=== PATIENT | female | born 2000 | race Caucasian/White ===

== ENCOUNTER 2023-08-09 03:11 | Emergency (ER) | payer MEDICAID, SELFPAY ==
[2023-08-09 03:21] VITALS: BP 123/72; PULSE 87; RESP 18; TEMP 36.7; O2SAT 97; BMI 30.7
--- NOTE | 2023-08-09 03:45 | ED_ITS ---
HPI - General Adult General Chief complaint: Abdominal Pain Stated complaint: Abdominal Pain Time Seen by Provider: 08/09/23 03:25 Source: patient Mode of arrival: ambulatory Limitations: no limitations History of Present Illness HPI narrative: 22-year-old female presents the emergency department with epigastric area discomfort for the past hour. Reports that she is felt intermittently mildly nauseated for the last couple of weeks. It has not limited her ability to eat or drink. She said that she had a salad for dinner at 8:29 p.m. and was watching movies with a friend. No alcohol or smoking. She had some spicy [place] at about 2:00 a.m. and started to have a feeling of epigastric burning. Reports that the pain was 9/10. She went to the bathroom where she vomited x1. She says that this did not improve her pain. She did not try taking an antacid medicine, Maalox, Tylenol or any other interventions prior to coming to the ED. Bowel movements have been normal. No hematemesis, no bloody stools, no fever, no trauma or injury. On specific questioning, she does report some reflux type symptoms. She also takes naltrexone, bupropion and spironolactone. This certainly could be contributing to her propensity for gastric reflux. She denies any right upper quadrant pain. No shortness of breath or chest discomfort. No prior history of stomach surgeries. Past medical history notable for PCOS per her report. Home meds as listed, confirmed accurate. Socially she is a nonsmoker, denies any recent alcohol. ROS is notable for the GI symptoms as above only, otherwise denies times 12 systems. Related Data Home Medications Medication Instructions Recorded Confirmed bupropion HCl 150 mg 24 hr tablet, 150 mg PO QAM 08/09/23 08/09/23 extended release naltrexone 50 mg tablet 12.5 mg PO DAILY 08/09/23 08/09/23 spironolactone 100 mg tablet 100 mg PO DAILY 08/09/23 08/09/23 Allergies Allergy/AdvReac Type Severity Reaction Status Date / Time shrimp Allergy Severe Verified 08/09/23 03:24 [facility] Social History Smoking Status: Never smoker Do you use any of these nicotine containing products: None Second hand tobacco smoke exposure: No How often do you have a drink containing alcohol: monthly or less How many standard drinks containing alcohol do you have on a typical day: 1 or 2 How often do you have six or more drinks on one occasion: Never AUDIT-C Alcohol total score: 1 Non-prescribed substance use: denies use service: No Exam Const: Vital Signs, click to edit/add: Vital Signs - 24 hr 08/09/23 03:21 08/09/23 04:47 Temperature 98.0 F 98.0 F Pulse Rate [Pulse Oximeter] 87 84 Respiratory Rate 18 16 Blood Pressure [Ri ght Upper Arm] 123/72 123/72 Pulse Oximetry 97 98 Oxygen Delivery Me thod Room Air Room Air Documenting provider has reviewed patient's vital signs: yes Common normals: no apparent distress General appearance: cooperative, comfortable and well kempt HENMT: Common normals: normocephalic Head and scalp: normocephalic Face and sinus: normal facial exam Mouth: oral and palatal mucosa normal Throat: posterior oropharynx normal Eye: Common normals: conjunctivae normal General eye: normal appearance of both eyes Conjunctiva: conjunctiva(e) normal Neck & C-Spine: Common normals: full ROM and no lymphadenopathy Resp: Common normals: normal respiratory effort, no use of accessory muscles and clear to auscultation bilaterally Effort & inspection: able to speak in complete sentences Auscultation: clear to auscultation bilaterally Cardio: Common normals: regular rate, regular rhythm, S1 normal heart sound and S2 normal heart sound Rate: regular rate Rhythm: regular rhythm Heart sounds: S1 normal and S2 normal GI: Common normals: Normal to inspection, nondistended, normoactive bowel sounds present, soft to palpation, no hepatosplenomegaly and no masses Palpation: soft and no hepatosplenomegaly Other: Mildly tender to epigastric region only, no tenderness to right upper quadrant or other areas of the abdomen. Certainly no rebound tenderness no guarding Extremity: Common normals: normal to inspection Neuro: Speech: speech normal Motor exam: no tremor noted and no movement abnormalities noted Psych: Appearance: well kempt Attitude: engaged Activity/motor behavior: appropriate eye contact Insight: insight good Judgement: judgment good Skin: Common normals: no rashes or lesions noted General skin exam: no rashes or lesions noted Course Course ED Course: Mild epigastric discomfort with no features of guarding, hematemesis, bloody stools or other worrisome etiology. Recommend a trial of symptomatic care. Will give Zofran, Tylenol, omeprazole and Maalox and re-evaluate. If no improvement, consider additional workup to look for gallbladder disease, pancreatitis, colitis and or other considerations. Differential diagnosis also including more likely GERD and/or gastritis. Reevaluation(s) Time of Reevaluation #1: 05:07 Reevaluation #1: Patient reporting marked improvement in her symptoms. Counseled patient that this likely would not have helped had she had a more dangerous etiology than gastritis or GERD. There are no red flags for any major underlying illness. Recommended a 10 day course of omeprazole, dietary restrictions discussed. Follow-up with primary care if not improving as expected and or recurrent or refractory symptoms. Alarm symptoms reviewed that would warrant ED presentation. She verbalizes understanding and agreement Vital Signs Vital signs: Initial Vital Signs Temperature 98.0 F 08/09/23 03:21 Temperature Source Temporal Artery Scan 08/09/23 03:21 Pulse Rate 87 08/09/23 03:21 Pulse Rhythm Regular 08/09/23 03:21 Respiratory Rate 18 08/09/23 03:21 Blood Pressure 123/72 08/09/23 03:21 Blood Pressure Mean 89 08/09/23 03:21 Blood Pressure Position Sitting 08/09/23 03:21 Pulse Oximetry 97 08/09/23 03:21 Oxygen Delivery Method Room Air 08/09/23 03:21 Vital Signs Temperature 98.0 F 08/09/23 03:21 Pulse Rate 87 08/09/23 03:21 Respiratory Rate 18 08/09/23 03:21 Blood Pressure 123/72 08/09/23 03:21 Pulse Oximetry 97 08/09/23 03:21 Oxygen Delivery Method Room Air 08/09/23 03:21 Temperature 98.0 F 08/09/23 04:47 Pulse Rate 84 08/09/23 04:47 Respiratory Rate 16 08/09/23 04:47 Blood Pressure 123/72 08/09/23 04:47 Pulse Oximetry 98 08/09/23 04:47 Oxygen Delivery Method Room Air 08/09/23 04:47 Medications Administered Medications: Discontinued Medications Generic Name Dose Route Start Last Admin Trade Name Freq PRN Reason Stop Dose Admin Acetaminophen 1,000 mg 08/09/23 03:45 08/09/23 03:56 Acetaminophen 500 Mg Tablet PO 08/09/23 03:46 1,000 mg ONCE ONE Administration Lidocaine/Aluminum/Magnesium/Simeth 15 ml 08/09/23 03:45 08/09/23 03:56 Mag Hydrox/Aluminum Hyd/Simeth 30 Ml Oral.Susp PO 08/09/23 03:46 15 ml ONCE ONE Administration Omeprazole 20 mg 08/09/23 03:45 08/09/23 03:56 Omeprazole [address] PO 08/09/23 03:46 20 mg ONCE ONE Administration Ondansetron HCl 4 mg 08/09/23 03:45 08/09/23 03:56 Ondansetron Odt 4 Mg Tab PO 08/09/23 03:46 4 mg ONCE ONE Administration Discharge Plan Discharge Clinical Impression: Gastroesophageal reflux disease Patient Disposition: Home w/ Parent or Adult Condition: Improved Instructions: Diet for Stomach Ulcers and Gastritis (ED), GERD (Gastroesophageal Reflux Disease) (DC) Additional Instructions: As we discussed, your symptoms seem to be from stomach acid irritation. Female gender and some of the medications you take may be making this worse. Thankfully, it is not especially dangerous. We you were given a stomach acid medicine here in the ED that was helpful. I recommend that you purchase [id number] omeprazole 20 mg tablets. Take 1 tablet daily before your evening meal for at least the next 10 days. This should improve your symptoms and prevent worsening again. If you continue to have symptoms after 2 weeks on the medication, I would recommend that you follow-up with her primary care provider to further discuss more testing. We would then typically test for a bacterial infection called H.pylori, certain stomach disorders and sometimes we recommend an endoscopy. But for most people, the omeprazole is extremely helpful and they do not need further testing or workup. Activity Level: No Restrictions Discharge Diet: Regular Prescriptions: No Action naltrexone 50 mg tablet 12.5 mg PO DAILY spironolactone 100 mg tablet 100 mg PO DAILY bupropion HCl 150 mg tablet extended release 24 hr 150 mg PO QAM Follow Up/Referrals: Provider,Not a Local [Primary Care Provider] - Stand Alone Forms: [employer] Info Instructions
[2023-08-09] MEDS: ONDANSETRON ODT 4 MG TAB PO (03:56)
[2023-08-09] MEDS: MAG HYDROX/ALUMINUM HYD/SIMETH 30 ML ORAL.SUSP 15 ML PO (03:56)
[2023-08-09] MEDS: OMEPRAZOLE 20 MG CAPSULE DR PO (03:56)
[2023-08-09] MEDS: ACETAMINOPHEN 500 MG TABLET 1000 MG PO (03:56)
[2023-08-09 04:47] VITALS: BP 123/72; PULSE 84; RESP 16; TEMP 36.7; O2SAT 98
--- NOTE | 2023-08-09 04:48 | PC.NURSE ---
Pt. states she is feeling better, pain down to a 2/10. Denies N/V.
== END 2023-08-09 05:18 | disposition home or self-care (01) ==
PROVIDERS: Emergency Provider Family Medicine
DX: K21.9 Gastro-esophageal reflux disease without esophagitis (principal)
CPT/HCPCS: 99282; 99283; A9270

== ENCOUNTER 2024-05-28 17:34 | Emergency (ER) | payer OTHER, SELFPAY ==
[2024-05-28 17:39] VITALS: BP 113/72; PULSE 71; RESP 20; TEMP 36.4; O2SAT 98; BMI 29.1
--- NOTE | 2024-05-28 17:48 | ED_ITS ---
HPI - General Time Seen by Provider: 17:48 Date Seen: 05/28/24 Chief complaint: OB/Uterine Contractions Stated complaint: 3 months preg, possible miscarriage Time Seen by Provider: 05/28/24 17:35 Source: patient and RN notes reviewed Mode of arrival: ambulatory Limitations: no limitations History of Present Illness HPI Narrative: This 23-year-old female is coming into the ER with concern of a miscarriage. She started with some spotting this morning, had worsening bleeding and cramping, past which she believes was a gestational sac with the baby in it just about 20 minutes prior to arrival. In [place] here she field up a maxi pad. She states she had an ultrasound in [place] where she lives either May 03 or and they saw subchorionic hemorrhage in she had a cyst on her right ovary. This is her 1st . She had her last menstrual. The week of February 27. She did have some nausea vomiting earlier today, no fevers. Denies any other symptoms. She is not feeling symptomatic from any excessive blood loss. Related Data : 1 Home Medications ?Medication ?Instructions ?Recorded ?Confirmed bupropion HCl 150 mg 24 hr tablet, 150 mg PO QAM 08/09/23 08/09/23 extended release naltrexone 50 mg tablet 12.5 mg PO DAILY 08/09/23 08/09/23 spironolactone 100 mg tablet 100 mg PO DAILY 08/09/23 08/09/23 Allergies Allergy/AdvReac Type Severity Reaction Status Date / Time shrimp Allergy Severe Verified 08/09/23 03:24 Review of Systems Status of ROS: Reports: 6 or more systems reviewed and unremarkable except as noted in History and below PFSH [facility] Social History Smoking Status: Never smoker Do you use any of these nicotine containing products: None Second hand tobacco smoke exposure: No How often do you have a drink containing alcohol: monthly or less How many standard drinks containing alcohol do you have on a typical day: 1 or 2 How often do you have six or more drinks on one occasion: Never AUDIT-C Alcohol total score: 1 Non-prescribed substance use: denies use service: No Exam Const: Vital Signs, click to edit/add: Vital Signs - 24 hr 05/28/24 17:39 10/27/24 20:16 Temperature 97.6 F 98.3 F Pulse Rate [Pulse Oximeter] 71 78 Respiratory Rate 20 16 Blood Pressure [Ri ght Upper Arm] 113/72 122/64 Pulse Oximetry 98 98 Oxygen Delivery Me thod Room Air Room Air This 23-year-old female is alert, interactive, no apparent distress. Sclera clear. Lungs are clear, good air entry, no wheezing or crackles. CV regular rate and rhythm, no murmur, normal S1-S2, no S3-S4. Abdomen is soft, nontender, nondistended, do not feel any organomegaly. Her current pad has about a 2 cm area of some blood, she is wearing a thinner pad, not truly a maxi pad. No significant active bleeding noted at this time. Bimanual exam and speculum exam deferred at this point. Documenting provider has reviewed patient's vital signs: yes Course Course ED Course: Will obtain ultrasound for imaging. Need to know her blood type, get baseline labs with a hemoglobin. She will be monitored here for ongoing bleeding. We will see if she needs any intervention or if she can be managed outpatient. Reevaluation(s) Time of Reevaluation #1: 21:04 Reevaluation #1: Have reviewed with patient that this indeed peers to be miscarriage which certainly sound like it from the products of conception she believes she saw on the toilet. She does note she got up once call the bathroom did have another gush of blood. Otherwise has not had change her pad. She has cramping. She is requesting ibuprofen will get her some. Her baseline hemoglobin is good, will recheck 1 now. Her vitals are stable, does not seem to be actively hemorrhaging. Time of Reevaluation #2: 21:34 Reevaluation #2: Hemoglobin is 12.2, same as on admission. I think patient can follow symptoms clinically outpatient. She is aware that she needs follow-up with Ob when she gets back to [place]. If bleeding is a concern or more symptomatic or significant while still here, return to the ED. She is O positive for blood type. Vital Signs Vital signs: Initial Vital Signs Temperature 97.6 F 05/28/24 17:39 Temperature Source Temporal Artery Scan 05/28/24 17:39 Pulse Rate 71 05/28/24 17:39 Pulse Rhythm Regular 05/28/24 17:39 Respiratory Rate 20 05/28/24 17:39 Blood Pressure 113/72 05/28/24 17:39 Blood Pressure Mean 85 05/28/24 17:39 Blood Pressure Position Sitting 05/28/24 17:39 Pulse Oximetry 98 05/28/24 17:39 Oxygen Delivery Method Room Air 05/28/24 17:39 Vital Signs Temperature 97.6 F 05/28/24 17:39 Pulse Rate 71 05/28/24 17:39 Respiratory Rate 20 05/28/24 17:39 Blood Pressure 113/72 05/28/24 17:39 Pulse Oximetry 98 05/28/24 17:39 Oxygen Delivery Method Room Air 05/28/24 17:39 Temperature 98.3 F 05/28/24 20:16 Pulse Rate 78 05/28/24 20:16 Respiratory Rate 16 05/28/24 20:16 Blood Pressure 122/64 05/28/24 20:16 Pulse Oximetry 98 05/28/24 20:16 Oxygen Delivery Method Room Air 05/28/24 20:16 Medications Administered Medications: Discontinued Medications Generic Name Dose Route Start Last Admin Trade Name Gracie PRN Reason Stop Dose Admin Ibuprofen 400 mg 05/28/24 21:05 05/28/24 21:09 Ibuprofen 200 Mg Tablet PO 05/28/24 21:06 400 mg ONCE ONE Administration MDM - OB/Uterine Contractions Lab Data Attestation: I reviewed the patient's lab results. Labs: Lab Results 05/28/24 05/28/24 Range/Units 18:05 21:16 WBC 11.05 H (4.50-11.00) K/uL RBC 4.16 (4.00-5.20) m/uL Hgb 12.2 12.2 (12.0-16.0) gm/dL Hct 35.4 (33.0-51.0) % MCV 85 (80-100) fL MCH 29 (26-34) pg MCHC 35 (32-36) gm/dL RDW Coeff of Evgeny 12.7 (11.5-15.5) % Plt Count 242 (140-440) K/uL Neut % (Auto) 85.3 H (42.0-72.0) % Lymph % (Auto) 10.7 L (20-44) % [place] % (Auto) 3.5 (0.0-11.0) % Eos % (Auto) 0.1 (0.0-7.0) % Baso % (Auto) 0.2 (0.0-3.0) % Neut # (Auto) 9.40 H (1.7-7.0) K/uL Lymph # (Auto) 1.20 (0.90-2.90) K/uL [place] # (Auto) 0.40 (0.00-0.90) K/UL Eos # (Auto) 0.00 (0.00-0.50) K/uL Baso # (Auto) 0.00 (0.00-0.30) K/uL Abs Immat Gran (auto) 0.00 (0.00-0.30) K/uL Imm/Tot Granulo (auto) 0.2 % Sodium 131 L (135-149) mmol/L Potassium 3.8 (3.6-5.1) mmol/L Chloride 99 (96-114) mmol/L Carbon Dioxide 22 (20-32) mmol/L Anion Gap 10 (7-15) mEq/L BUN 6 (5-24) mg/dL Creatinine 0.6 (0.5-1.5) mg/dL Estimated Creat Clear 137.68 Estimated GFR 130 ml/min Glucose 108 (60-115) mg/dL Calcium 8.9 (8.4-10.6) mg/dL Total Bilirubin 0.3 (0.1-1.5) mg/dL AST 21 (12-35) U/L ALT 13 (4-35) U/L Alkaline Phosphatase 40 (40-150) U/L Total Protein 7.1 (6.0-8.3) g/dL Albumin 4.3 (3.3-5.0) g/dL Blood Type O Positive Imaging Data US OB: Attestation: I have reviewed the pertinent imaging results. Radiologist's impression: Patient: ANGIE SCHMIDT Facility:?[facility] Patient ID:?[id number] Site Patient ID:?[id number]. Site :?[id number] Study:?US-OB Pelvis TA and TV-05/28/2024 7:46:48 PM Ordering Physician:?Rina Guevara Final Report: INDICATION: Bleeding, possible miscarriage. TECHNIQUE: Ultrasound OB pelvis transabdominal and transvaginal. Real-time bautista-scale imaging of the pelvis was performed. COMPARISON: None. FINDINGS: No intrauterine gestation identified. The endometrium is distended to 2.6 cm by heterogeneous mixed echogenicity material. There are areas of hyperemia within the endometrium. The ovaries are normal in appearance. The right ovary measures 3.5 x 2.7 x 2.2 cm and the left ovary measures 2.8 x 2.2 x 1.8 cm. No adnexal mass. Small volume simple free fluid within the pelvis. IMPRESSION: No intrauterine gestation identified. Distended endometrium by heterogeneous mixed echogenicity material with foci of hypervascularity. In the setting of a recent confirmed , findings could represent a failed intrauterine gestation with retained products of conception. Dictated by Jhonatan Mark MD @ 05/28/2024 8:22:33 PM (Electronic Signature) Discharge Plan Discharge Clinical Impression: Miscarriage at 8 to 28 weeks gestation Patient Disposition: Home, Self-Care Condition: Stable Instructions: Miscarriage (ED) Additional Instructions: Hemoglobin is stable here, ultrasound is consistent with miscarriage. Need to watch for heavy or symptomatic bleeding. If you do start bleeding through a heavy maxi pad hourly for 2 hours, or becoming symptomatic with bleeding such as heart rate elevating, feeling lightheaded, feeling faint, short of breath with activity, do need to return to the ER while you are still here. Otherwise, once back in [place] need to follow-up with your woodworking machine operator. Prescriptions: No Action naltrexone 50 mg tablet 12.5 mg PO DAILY spironolactone 100 mg tablet 100 mg PO DAILY bupropion HCl 150 mg tablet extended release 24 hr 150 mg PO QAM Follow Up/Referrals: Provider,Not a Local [Primary Care Provider] - Stand Alone Forms: [employer] Info Instructions
--- NOTE | 2024-05-28 17:55 | CRLHL7_ITS ---
For Patients: As a result of the Century Cures Act, medical imaging exams and procedure reports are released immediately into your electronic medical record. You may view this report before your referring provider. If you have questions, please contact your health care provider. INDICATION: Bleeding, possible miscarriage. TECHNIQUE: Ultrasound OB pelvis transabdominal and transvaginal. Real-time bautista-scale imaging of the pelvis was performed. COMPARISON: None. FINDINGS: No intrauterine gestation identified. The endometrium is distended to 2.6 cm by heterogeneous mixed echogenicity material. There are areas of hyperemia within the endometrium. The ovaries are normal in appearance. The right ovary measures 3.5 x 2.7 x 2.2 cm and the left ovary measures 2.8 x 2.2 x 1.8 cm. No adnexal mass. Small volume simple free fluid within the pelvis. IMPRESSION: No intrauterine gestation identified. Distended endometrium by heterogeneous mixed echogenicity material with foci of hypervascularity. In the setting of a recent confirmed , findings could represent a failed intrauterine gestation with retained products of conception. Dictated by Jhonatan Mark MD @ 05/28/2024 8:22:33 PM (Electronically Signed)
[2024-05-28 18:15] LABS: Basophils Percent Auto 0.2 % (0.0-3.0); Eosinophils Percent Auto 0.1 % (0.0-7.0); Hematocrit 35.4 % (33.0-51.0); Hemoglobin* 12.2 gm/dL (12.0-16.0); Immature Granulocytes Pct Auto 0.2 %; Lymphocytes Percent Auto 10.7 % (20-44); Mean Corpuscular HGB Conc 35 gm/dL (32-36); Mean Corpuscular Hemoglobin 29 pg (26-34); Mean Corpuscular Volume 85 fL (80-100); Monocytes Percent Auto 3.5 % (0.0-11.0); Neutrophils Percent Auto 85.3 % (42.0-72.0); Platelet Count* 242 K/uL (140-440); RDW Coefficient of Variation % 12.7 % (11.5-15.5); Red Blood Count 4.16 m/uL (4.00-5.20); White Blood Count* 11.05 K/uL (4.50-11.00)
[2024-05-28 18:16] LABS: Slide Review Reflex No
[2024-05-28 18:29] LABS: Albumin* 4.3 g/dL (3.3-5.0); Chloride* 99 mmol/L (96-114); Potassium* 3.8 mmol/L (3.6-5.1); Sodium* 131 mmol/L (135-149)
[2024-05-28 18:31] LABS: Anion Gap 10 mEq/L (7-15); Bilirubin Total* 0.3 mg/dL (0.1-1.5); Carbon Dioxide* 22 mmol/L (20-32); Creatinine* 0.6 mg/dL (0.5-1.5); Est. Creatinine Clearance* 137.68; Estimated Glomerular Filt Rate 130 ml/min
[2024-05-28 18:32] LABS: Alanine Aminotransferase* 13 U/L (4-35); Alkaline Phosphatase* 40 U/L (40-150); Aspartate Amino Transferase* 21 U/L (12-35); Blood Urea Nitrogen* 6 mg/dL (5-24); Glucose* 108 mg/dL (60-115); Total Protein* 7.1 g/dL (6.0-8.3)
[2024-05-28 18:33] LABS: Calcium* 8.9 mg/dL (8.4-10.6)
[2024-05-28 20:16] VITALS: BP 122/64; PULSE 78; RESP 16; TEMP 36.8; O2SAT 98
[2024-05-28] MEDS: IBUPROFEN 200 MG TABLET 400 MG PO (21:09)
[2024-05-28 21:21] LABS: Hemoglobin* 12.2 gm/dL (12.0-16.0)
[2024-05-28 21:45] VITALS: BP 118/62; PULSE 70; RESP 16; TEMP -7.7; TEMP 18
== END 2024-05-28 21:46 | disposition home or self-care (01) ==
PROVIDERS: Emergency Provider Family Medicine
DX: O03.9 Complete or unspecified spontaneous abortion without complication (principal)
CPT/HCPCS: 36415; 76801; 76817; 80053; 85018; 85025; 86900; 86901; 99283; 99284; A9270

== ENCOUNTER 2025-06-29 08:02 | Outpatient (CLI) | payer BC, SELFPAY ==
--- NOTE | 2025-06-29 08:15 | CRLHL7_ITS ---
For Patients: As a result of the Century Cures Act, medical imaging exams and procedure reports are released immediately into your electronic medical record. You may view this report before your referring provider. If you have questions, please contact your health care provider. INDICATION: Dating, viability. TECHNIQUE: Ultrasound OB pelvis transvaginal. Real-time bautista-scale imaging of the pelvis was performed. COMPARISON: None FINDINGS: Sonographic imaging demonstrates a single living intrauterine gestation. The embryo demonstrates a regular cardiac rate measuring 169 beats per minute. The embryo`s crown rump length measurement of 1.7 cm corresponds to a gestational age of 8 weeks, 1 day with a sonographic due date of 02/07/2026. There is a normal appearing yolk sac. There are no gross abnormalities noted within the embryo at this early state of development. The placenta has not yet developed. 1.1 x 0.6 x 1.3 cm subchorionic hemorrhage in the anterior upper uterine body. Unremarkable appearance of the bilateral ovaries. IMPRESSION: 1. Single viable intrauterine with crown-rump length measurement of 1.7 cm, corresponding to a gestational age of 8 weeks, 1 day. 2. Subchorionic hemorrhage in the anterior upper uterine body measuring 1.1 x 0.6 x 1.3 cm. Dictated by Alvarez Sosa MD @ 06/29/2025 3:04:00 PM (Electronically Signed)
== END 2025-06-29 08:03 | disposition home or self-care (01) ==
LOC: US 08:04
PROVIDERS: Visit Provider Advanced Practice Midwife
DX: O20.9 Hemorrhage in early pregnancy, unspecified (principal); Z3A.08 8 weeks gestation of pregnancy
CPT/HCPCS: 76817